=== PATIENT | female | born 1965 | race Caucasian/White ===

== ENCOUNTER → 2018-06-16 12:01 | Outpatient (CLI) | payer OTHER, SELFPAY ==
--- NOTE | 2018-06-16 | DI.MRI.S_ITS ---
PROCEDURE: MR KNEE RT WO CON INDICATIONS: PAIN IN RIGHT KNEE TECHNIQUE: Noncontrast sagittal PD fast spin echo and T2 fast spin echo with fat saturation, sagittal 3-D FLASH with fat saturation; coronal T1 spin echo and PD fast spin echo with fat saturation, and axial PD fast spin echo with fat saturation through the knee. COMPARISON: None. FINDINGS: Image quality: Excellent. Menisci: The complex tear involving posterior horn of medial meniscus is seen extending to both superior and inferior articulating surfaces. There is peripheral displacement of medial meniscus bowing medial collateral ligament. No evidence of focal lateral meniscal tear is seen. The meniscal root ligaments appear intact. Cruciate ligaments: The anterior and posterior cruciate ligaments appear intact. Medial structures: Low to moderate grade MCL sprain is seen.. The posterior oblique ligament, semimembranosus tendon insertions, oblique popliteal ligament, and meniscocapsular junction appear intact. Visualized portions of the pes anserinus tendons appear normal. No abnormal bursal fluid. Lateral structures: The lateral collateral ligament, long and short heads of the biceps femoris tendon appear intact. The popliteus tendon appears normal; the popliteofibular ligament appears intact. The posterosuperior and anteroinferior popliteomeniscal fascicles appear intact. The arcuate and fabellofibular ligaments appear intact, on either side of the lateral inferior geniculate artery. Iliotibial band appears normal. Anterior structures: The quadriceps and patellar tendons appear intact. Patellar alignment is normal. No femoral trochlear dysplasia or ventral trochlear prominence. No edema in the infrapatellar fat pad. Bones and cartilage: There is a moderate tricompartment osteoarthritis more prominent in medial femoral tibial compartment. No fracture or dislocation. No marrow edema. 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 Joint space: There is moderate amount of joint effusion, no gross loose body. No Zendejas's cyst. Normal appearing synovial plicae are incidentally noted. IMPRESSION: 1. Complex tear involving posterior horn of medial meniscus extending to superior and inferior articulating surfaces. No focal lateral meniscal tear. 2. Cruciate ligaments are intact. Low to moderate grade MCL sprain. 3. Moderate tricompartmental osteoarthritis more prominent in the medial femoral tibial compartment. Moderate amount of joint fluid, no gross loose body. Dictated by: Toy Schroeder M.D. on 06/16/2018 at 14:01 Approved by: Toy Schroeder M.D. on 06/16/2018 at 14:08
== END ==
PROVIDERS: PCP Family Medicine Geriatric Medicine; Visit Provider Physician Assistant Medical
DX: M25.561 Pain in right knee (principal); S83.231A Complex tear of medial meniscus, current injury, right knee, initial encounter; S83.411A Sprain of medial collateral ligament of right knee, initial encounter; M17.11 Unilateral primary osteoarthritis, right knee
CPT/HCPCS: 73721

== ENCOUNTER → 2018-07-07 14:41 | Outpatient (CLI) | payer OTHER, SELFPAY ==
[2018-07-07 14:51] LABS: Bacteria Urine None Seen; WBC Urine None Seen (0-5/HPF)
[2018-07-07 15:14] LABS: Appearance Urine UA CLEAR; Bilirubin Urine UA NEGATIVE (NEGATIVE); Color Urine UA YELLOW; Glucose Urine UA NEGATIVE (Negative); Ketones Urine UA NEGATIVE (NEGATIVE); Leukocyte Esterase Urine UA NEGATIVE (NEGATIVE); Nitrite Urine UA NEGATIVE (Negative); Occult Blood Urine UA TRACE-INTACT (Negative); Protein Urine UA NEGATIVE (Negative); Specific Gravity Urine UA >=1.030 (1.000-1.035); Urobilinogen Urine UA 0.2 E.U./dL (0.2)
[2018-07-07 15:15] LABS: Add Manual Diff / Slide Review NO; Basophils Absolute Auto 0 /uL (0-100); Basophils Percent Auto 0.5 % (0-2); Eosinophils Absolute Auto 300 /uL (0-450); Eosinophils Percent Auto 3.5 % (2-4); Hematocrit 40.7 % (36-46); Hemoglobin 13.8 g/dL (12.0-16.0); Lymphocytes Absolute Auto 2100 /uL (1100-4500); Lymphocytes Percent Auto 23.3 % (25-40); Mean Corpuscular HGB Conc 33.8 % (30-36); Mean Corpuscular Hemoglobin 29.8 PG (26-34); Mean Corpuscular Volume 88.3 fL (80-100); Monocytes Absolute Auto 600 /uL (0-900); Monocytes Percent Auto 6.3 % (3-14); Neutrophils Absolute Auto 6000 /uL (1500-7000); Neutrophils Percent Auto 66.4 % (50-75); Platelet Count 301 X10^3/uL (150-400); Red Blood Cell Count 4.61 X10^6/uL (4.0-5.2); Red Cell Distribution Width 14.8 % (11.6-14.8)
[2018-07-07 15:31] LABS: RBC Urine 1-5/HPF (0-5/HPF)
[2018-07-07 15:32] LABS: Amorphous Sediment Urine 2+; Culture Indicated Urine Cult Not Indicated; Squamous Epithelial Cell Urine 10-30 /HPF
[2018-07-07 15:34] LABS: Hemoglobin A1C% w Est Avg Glu 5.5 % (4.0-6.0)
[2018-07-07 15:49] LABS: BUN Creatinine Ratio 18.6 (6-22); Blood Urea Nitrogen 13 mg/dL (7-17); Calcium 9.7 mg/dL (8.4-10.2); Carbon Dioxide 24 mmol/L (22-32); Chloride 105 mmol/L (98-107); Estimated Glomerular Filt Rate > 60.0 mL/min (>60); Glucose 101 mg/dL (70-100); HEMOLYSIS < 15 (0-50); Potassium 3.9 mmol/L (3.4-5.1); Sodium 140 mmol/L (137-145)
[2018-07-07 15:55] LABS: Transferrin 213 mg/dL (206-381)
== END ==
PROVIDERS: Family Provider Physician Assistant; PCP Family Medicine Geriatric Medicine; Visit Provider Physician Assistant Medical
DX: E61.1 Iron deficiency (principal); N39.0 Urinary tract infection, site not specified; R73.9 Hyperglycemia, unspecified; Z01.818 Encounter for other preprocedural examination
CPT/HCPCS: 36415; 80048; 81001; 83036; 84466; 85025; 93005

== ENCOUNTER 2018-08-07 08:02 | Inpatient (IN) | payer OTHER, SELFPAY ==
[2018-07-24 10:03] VITALS: BMI 39.5
[2018-08-07] VITALS (15 sets, daily range): BP systolic 122–168; BP diastolic 69–99; PULSE 72–96; RESP 10–22; TEMP 36.3–37.1; O2SAT 88–98; BMI 39.5
--- NOTE | 2018-08-07 06:00 | DI.RAD.S_ITS ---
PROCEDURE: XR KNEE RT 1TO2V INDICATIONS: prosthesis placement TECHNIQUE: 2 view(s) of the knee acquired. COMPARISON: [facility] [place], [place], XR KNEE ARTHRITIC SERIES RT, 06/19/2018, 11:11. FINDINGS: Bones: Patient is status post knee joint arthroplasty. Hardware components are in expected positions. Visualized bony structures are intact. Soft tissues: Overlying postoperative changes are noted. IMPRESSION: Expected postoperative appearance. Dictated by: Beau Louie M.D. on 08/07/2018 at 13:20 Approved by: Beau Louie M.D. on 08/07/2018 at 13:21
--- NOTE | 2018-08-07 08:56 | PC.NURSE ---
Day shift: Pt not on AC unit at this time.
[2018-08-07] MEDS: LACTATED RINGERS 1,000 ML 42 ML IV (09:03)
[2018-08-07] MEDS: ACETAMINOPHEN 325 MG TABLET 975 MG PO ×2 (09:22→14:08)
[2018-08-07] MEDS: CELECOXIB 200 MG CAPSULE PO (09:23)
[2018-08-07] MEDS: VANCOMYCIN 1,000 MG/200 ML FROZ.PIGGY 200 MG IV ×3 (09:30→22:37)
[2018-08-07] MEDS: MIDAZOLAM 2 MG/2 ML VIAL IV (09:30)
--- NOTE | 2018-08-07 09:54 | PM.PREOP ---
Pre-operative Note Interval Note History & Physical reviewed/Exam performed by Physician: Yes Changes to H&P: No
--- NOTE | 2018-08-07 10:06 | SUR.PREOP ---
confirmed vancomycin to be given with dr. cunningham
--- NOTE | 2018-08-07 10:10 | P.OP_ITS ---
Operative Date/Time/Diagnoses Date of procedure: 08/07/18 Time of procedure: 11:30 Pre-op diagnosis: Right knee osteoarthritis Post-op diagnosis: same Procedure & Clinicians Procedure: Right total knee replacement Same procedure as scheduled: Yes Indications: The patient has had progressively worsening right knee pain with radiographic changes consistent with arthritis. Non-operative management has failed and the patient has requested total knee replacement. The risks, benefits and alternatives to surgery were discussed with the patient prior to proceeding. Risks discussed included, but were not limited to, failure to relieve pain, stiffness, infection, nerve damage, deep venous thrombosis, pulmonary embolism, stroke, coma, heart attack, permanent paralysis and , as well as the potential need for eventual revision of the prosthetic. Surgeon: Mickey Kong Avionics System Engineer: Sherri Zafar Click Yes if Unassisted: No Anesthesia Type: General, Peripheral nerve block and Local Operative Notes Findings: Significant patellofemoral and medial compartment osteoarthritis. Closure Type: primary Specimen(s): none sent Prosthetic devices, grafts, tissues, transplants, or devices: Implants used in this procedure were manufactured by the [employer] and [employer] Reviewed and included the BCS II Journey total knee replacement with a size 5 right Oxinium femoral component, a size 4 right non porous tibial base plate, a 10 mm cross- linked polyethylene tibial insert and a 32 mm oval Alexia II patellar component. Applied: implant(s) Estimated Blood Loss (mL): 100 Blood products transfused: none Tourniquet time (min): 55 Procedure in detail: The patient was seen in the pre-operative area, where the patient identified the right knee as the operative site and this was marked with my initials. The patient received pre-operative antibiotics, and was taken to the operating room and placed on the operative table in the supine position. After satisfactory anesthesia, a biomedical equipment support specialist out was performed. The right leg was encircled with a tourniquet about the proximal thigh, and the leg was prepared from the toes to the tourniquet with ChloroPrep in the usual fashion and draped through sterile drapes. The leg was elevated and exsanguinated with Eschmark bandage and the tourniquet inflated to 250 mmHg pressure, about 5 min later this was increased to 300 mmHg due to bleeding through the tourniquet.. The knee was approached through an approximately 18 cm incision centered over the patella and carried into the knee through a medial parapatellar arthrotomy. The anterior osteophytes and soft tissues were removed. The rotational landmarks of Jorge's line and the transepicondylar axis were marked on the femur with electrocautery, and intramedullary guide holes for the femur and tibia were created. The distal femoral cut was made in 6 degrees of valgus using the intramedullary guide at the primary cut setting. The proximal tibial cut was then made using the intramedullary guide, taking 9 mm of bone off the less involved side. The extension gap was checked and the rotation of the femoral component confirmed with the gap balancing system. The anterior, posterior and chamfer cuts were then made. The posterior osteophytes and soft tissues were then removed. The posterior capsule was injected with part of a mixture of 60 ml 0.25% Marcaine mixed with 20 ml Exparel and 4 mg of morphine for post-operative pain control. (Although the patient lists morphine as an allergy, her reaction is described as ?respiratory depression? and as the patient was monitored by the anesthesiologist this was felt to be a reasonable risk.) The remainder of this mixture was injected into the capsule and subcutaneous tissues during cement curing. The tibia was prepared with the rotation set by an extra medullary guide. Trial tibial and femoral components were then placed and the intercondylar notch cut through the femoral trial. Range of motion was 0-120 degrees with further flexion limited by the patient's body habitus, with good stability throughout the range. The patella was then cut to accommodate the patellar prosthetic. There was no need for a lateral release. The trials were then removed, and the femoral hole plugged with a bone plug. The bone was prepared with pulsatile lavage, and dried with a sponge. Cement was applied and the final prosthetics placed. Excess cement was removed during and after cement curing. After confirming there was no extruded cement posteriorly, the final tibial insert was placed. The knee was copiously irrigated and the tourniquet deflated. Hemostasis was obtained. The capsule was closed with interrupted # 2 polyester suture. The subcutaneous layer was closed with 3-0 Vicryl, and the skin with a running 3-0 V-Lock suture and SteriStrips. An Aquacel Ag dressing was applied and the patient was taken to recovery having tolerated the procedure well. Complications: none Condition: stable Disposition: PACU Plan for aftercare: The patient will be maintained on a standard total knee replacement protocol with weight bearing as tolerated. The patient will receive aspirin and sequential compression devices for DVT prophylaxis. The patient will be discharged home when safe for the home environment.
--- NOTE | 2018-08-07 10:15 | SUR.PREOP ---
Block start time []0938 . Monitoring initiated and maintained throughout procedure. Oxygen and medications given per anesthesiologist instructions. Patient remained stable throughout procedure, no adverse reactions noted. Block end time [0943].
--- NOTE | 2018-08-07 10:39 | SUR.OPER ---
Supine on padded OR bed. Pillow under head, arms secured on padded armboards <90 degree abduction. Safety belt across torso. Non-operative leg secured with tape over blanket over lower leg. Operative leg secured in DeMayo positioner. Foam padded brace at thigh of operative leg.
[2018-08-07] MEDS: BUPIVACAINE 0.25% W/ EPI 50 ML VIAL 60 ML INJ (10:47)
[2018-08-07] MEDS: MORPHINE 4 MG/ML INJ INJ (10:48)
[2018-08-07] MEDS: BUPIVACAINE LIPOSOME 266 MG/20 ML VIAL INJ (10:48)
[2018-08-07] MEDS: TRANEXAMIC ACID 1,000 MG VIAL 1000 MG INJ ×2 (10:49→11:15)
[2018-08-07] MEDS: HYDROMORPHONE 2 MG INJ 0.25 MG IV (12:18)
[2018-08-07] MEDS: HYDROMORPHONE 2 MG INJ 0.5 MG IV ×2 (12:26→12:36)
--- NOTE | 2018-08-07 12:42 | SUR.PHASEI ---
Reported 7/10 Rt ankle ache, moving ankle independently. Rt ankle wnl.
[2018-08-07] MEDS: LORazepam 2 MG/ML SYRINGE 0.25 MG IV (12:54)
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
--- NOTE | 2018-08-07 13:06 | SUR.PHASEI ---
Report called to SARAH Meyer. Pt eleazar, sats 92-96% on RA.
--- NOTE | 2018-08-07 13:34 | SUR.PHASEI ---
Pt transferred to the floor with her suitcase, belongings bag, walker and two grabbing devices. Report to Betsy. VS stable. Drsg cdi. Pt smiling and talkative. IV saline locked.
--- NOTE | 2018-08-07 13:38 | PC.NURSE ---
Day shift: Arrived on unit at approx 1340. Oriented to room and call light. 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 Agrees to not get OOB w/o help. Denies nausea. ROGELIO wrap w/ Aquacel is CDI. CMS ok. PPP. VS ok. Hx HTN. No drains and no Bryant. Voided just prior to leaving PACU per WARD AIDE.
[2018-08-07] MEDS: LACTATED RINGERS 1,000 ML 125 ML IV ×2 (13:48→19:59)
[2018-08-07] MEDS: hydrOXYzine pamoate 25 MG CAPSULE PO ×2 (14:09→19:44)
[2018-08-07] MEDS: HYDROCODONE/ACET 5/325 TABLET 1 TAB PO (14:23)
--- NOTE | 2018-08-07 14:45 | P.PCN_ITS ---
Procedures Date/Time Date of procedure: 08/07/18 Time of procedure: 09:45 Nerve Block Time out performed: Yes Local anesthetic used: lidocaine 1% (w/ epi 5mL + 15mL 0.5opivacaine) Location of anesthetic used: adductor canal Amount of anesthesia used (mL): 20 Nerve blocks: femoral (adductor canal) Procedure successful: Yes Patient tolerated procedure: well Complications: none Additional comments: Adductor canal block for post operative pain management. R/B discussed. Site marked. Consent verified/signed. Standard ASA monitors. NC O2. Chloroprep. Sterile technique. Femoral A/V/N identified medial mid thigh with US. Lidocaine skin wheal. 100mm x 21g Pajunk needle advanced with in-plane US guidance. Negative aspiration. LA injected medial and lateral to femoral artery. Negative aspiration throughout. No pain, no paresthesia with injection. VSS. Tolerated well. To OR.
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
[2018-08-07] MEDS: HYDROMORPHONE 0.5 MG INJ IV (17:10)
[2018-08-07] MEDS: HYDROCODONE/ACET 10/325 TABLET 1 TAB PO ×2 (19:42→23:42)
[2018-08-07] MEDS: DOCUSATE 100 MG CAPSULE PO (22:37)
[2018-08-07] MEDS: ASPIRIN EC 81 MG TABLET PO (22:37)
--- NOTE | 2018-08-07 23:33 | PC.NURSE ---
Evening note: Jenny in good spirits tonight, she is Ox3 and to situation, reports good pain relief from hydrocodone & vistaril. Did need IV Dilaudid x 1 for breakthrough pain earlier, since then I have given her 10 mg hydrocodone which she said worked much better/longer than the 1 tab did. Drsg is CDI, CMS intact, still reports numbness to right medial knee and knee cap area. Refusing SCD's but has been ambulating to BR q1-2hours, doing leg exercises in bed, can lift leg slightly off bed. 1 person asst w/fww. Denies nausea tonight and tolerated dinner. Instructed to call nurse if needs OOB, she has been using call button appropriately, bed alarm active for safety per hospital protocol.
--- NOTE | 2018-08-08 00:02 | PC.NURSE ---
Addendum entered by Lynne Sheth R.N. 08/08/18 05:54: States pain much better controlled this morning and rates pain as 2/10. States she is expecting to DC home later this morning. Continues to void frequently. Used bedpan most of night but able to get up with walker and 1 assist to bathroom again this morning. Continues to decline use of SCD's and so reminded (and is doing) to do frequent ankle waving. Original Note: Addendum entered by Lynne Sheth R.N. 08/08/18 02:28: Has been voiding every 15-30 minutes and urine is very pale yellow. IVF stopped as per MD order. Original Note: Addendum entered by Lynne Sheth R.N. 08/08/18 01:43: States pain is more sharp and now 6/10; repositioned, ice applied and medicated with Vistaril. Patient knows if pain doesn't decrease MD will be contacted as patient does not want to take Dilaudid as she felt as though she stopped breathing when it was given earlier. Original Note: Patient is alert and oriented. Breath sounds CTA with RA sat of 96%; on continuous oximetry. HRR with elevated BP of 159/90. Denies nausea. BT hypoactive; denies flatus. Has chronic urinary frequency, urgency and dribbles but denies dysuria. Moves self in bed but needs 1 assist + walker when out of bed. States she is unable to put full weight on right leg but feels steady on feet. Dressing to right knee is CDI; leg is wrapped with guillermina. Complains of 6/10 deep ache so repositioned, medicated with Vicodin and ice applied. CMS is intact. Declines to wear SCD's. Fall risk score is moderate and patient is calling appropriately.
[2018-08-08] MEDS: hydrOXYzine pamoate 25 MG CAPSULE PO ×2 (01:39→07:58)
[2018-08-08] MEDS: HYDROCODONE/ACET 10/325 TABLET 1 TAB PO ×2 (03:40→07:56)
[2018-08-08 04:26] VITALS: BP 179/86; PULSE 84; RESP 16; TEMP 36.9; O2SAT 95
[2018-08-08 05:58] LABS: Hematocrit 40.1 % (36-46); Hemoglobin 13.5 g/dL (12.0-16.0)
[2018-08-08 07:47] VITALS: BP 155/86; PULSE 91; RESP 18; TEMP 36.6; O2SAT 96
[2018-08-08] MEDS: CHOLECALCIFEROL (VITAMIN D3) 1,000 UNIT TABLET 2000 UNIT PO (07:54)
[2018-08-08] MEDS: LORATADINE 10 MG TABLET PO (07:55)
[2018-08-08] MEDS: MELOXICAM 7.5 MG TABLET 15 MG PO (07:55)
[2018-08-08] MEDS: ASPIRIN EC 81 MG TABLET PO (07:56)
[2018-08-08] MEDS: MAGNESIUM OXIDE 400 MG TABLET PO (07:56)
[2018-08-08] MEDS: DOCUSATE 100 MG CAPSULE PO (07:56)
--- NOTE | 2018-08-08 08:00 | PM.DS.1 ---
History of Present Illness Date Patient Seen: 08/08/18 Time Patient Seen: 08:01 Chief complaint: Right Total Knee Arthroplasty [id number] Narrative: The history and physical examination are contained in the chart previously completed note. Please refer to that note for this information. Discharge Providers Date of admission: 08/07/18 08:02 Discharge Date: 08/08/18 Primary care physician: Maikel Cruz MD Consults: 08/07/18 13:30 Consult to Discharge Planning Routine Comment: Consult to Physical Therapy Evaluate & Treat Comment: Physician Instructions: postop TKA protocol Discharge provider: Mickey Kong MD Summary Discharge Diagnosis: 1. Right knee osteoarthritis. Hospital Course: The patient was admitted to the hospital and taken directly to the operating room on August 07, 2018. She underwent a right total knee replacement without complications. On postoperative day 1 she was comfortable and ready for discharge. Status at Discharge Cognitive/behavioral status at discharge: oriented Functional status at discharge: uses cane/walker Overall status at discharge: patient is progressing back to baseline Time Spent with Patient Less than 30 minutes Exam Vital Signs (past 8 hours): - 08/08/18 04:26 08/08/18 07:47 Temperature 98.4 F 97.8 F Pulse Rate 84 91 H Respiratory Rate 16 18 Blood Pressure 179/86 H 155/86 H Pulse Oximetry 95 96 Oxygen Delivery Method Room Air Oxygen Flow Rate 0 Narrative Exam Narrative: Right knee wound is dressed with no drainage. Calf is soft. Light touch and motion are intact in the right lower extremity. Objective Labs Result Diagrams: 08/08/18 05:42 Labs: Laboratory Results - last 24 hr 08/08/18 05:42 Hgb 13.5 Hct 40.1 Discharge Plan Discharge Plan Patient Disposition: Home Discharge Med Rec/Prescriptions Prescriptions: New hydrocodone-acetaminophen 5-325 mg Tablet 1 tab PO Q4HR PRN (Reason: Pain, Moderate (4-6)) Qty: 40 RF: 0 aspirin 81 mg Tablet,Delayed Release (Dr/Ec) 81 mg PO BID 42 Days Qty: 84 RF: 0 hydroxyzine pamoate 25 mg Capsule 25 mg PO Q6HR PRN (Reason: Nausea) Qty: 40 RF: 0 Continued Vitamin E (VITAMIN E) 1 cap PO DAILY Qty: 0 RF: 0 magnesium oxide 400 mg magnesium Tablet 400 mg PO DAILY Qty: 0 RF: 0 Hydroxytryptophan (#5-HTP) 100 mg PO DAILY Qty: 0 RF: 0 cetirizine 10 MG tablet 10 mg PO QDAY Qty: 0 RF: 0 cholecalciferol (vitamin D3) [Vitamin D3] 2,000 unit Capsule 2,000 unit PO DAILY Qty: 0 RF: 0 Vitamin D3 4,000 unit Capsule 4,000 unit PO DAILY RF: 0 meloxicam 15 mg tablet 15 mg PO DAILY RF: 0 Follow up/Referrals: Maikel Cruz MD [Primary Care Provider] - Mickey Kong MD [Physician] - 3-5 Days Provider Discharge Instructions Diet: Diet as Tolerated and Regular Activity: You may weight bear as tolerated on your right leg. Cold/Heat Therapy: Apply ice to the right knee for 15 min of every hour as needed for pain. Skin/Wound/Dressing Care Report to your healthcare provider any signs of infection, such as:: chills, fever, night sweats, increased pain, unusual drainage and unusual redness Dressing: Remove the Foster wrap 3 days after surgery. You may shower with the deeper dressing in place. If the deeper dressing gets saturated with either water or blood please contact the office. Visit Report/Discharge Packet Instructions: DI for Knee Replacement Stand Alone Forms: Surgery Discharge Discharge Data Primary Care Provider: Maikel Cruz Attending Provider: Mickey Kong Admit Date/Time: 08/07/18 08:02
--- NOTE | 2018-08-08 09:00 | PT.IPTN ---
Current Diagnoses Unilateral primary osteoarthritis, right knee (08/07/18) Surgery Performed Operation Date: 08/07/18 10:15 Actual Procedures p Total Knee Arthroplasty(Right) - Mickey Kong MD Physical Therapy Treatment Note M2 PT-IP Current Condition Start: 08/07/18 15:07 Freq: NEEDED Status: Discharge Protocol: Document 08/07/18 14:30 HH (Rec: 08/07/18 15:30 HH [id number]) Physical Therapy Current Condition Current Condition Evaluation Date 08/07/18 Treatment Diagnosis R TKA, difficulty in walking and R LE weakness Onset Date 08/07/18 Precautions Other Precautions Pt states I cant lay flat due to my stenosis. Weight Bearing Status Weight Bearing Status Weight Bear as Tolerated M3 PT-IP Subjective Start: 08/07/18 15:07 Freq: NEEDED Status: Discharge Protocol: Document 08/08/18 09:00 RS (Rec: 08/08/18 11:04 RS [email or web address]) Subjective Physical Therapy Visit Type Type Treatment Note Visit Start Time 08:00 Visit Stop Time 09:00 Total Visit Minutes 60 Notes Pt hoping to leave [facility] to make the [address] [facility]. Therapy Pain Assessment Pain When Pain Assessed At Rest Pain Present Pain Present Denied Pain M4 PT-IP Mobility and Gait Start: 08/07/18 15:07 Freq: NEEDED Status: Discharge Protocol: Document 08/08/18 09:00 RS (Rec: 08/08/18 11:04 RS [email or web address]) PT-Bed Mobility Assessment Supine to Sit Supine to Sit Independent Sit to Supine Sit to Supine Independent Scooting Scooting to Edge of Bed Independent Scooting Up and Down in Bed Independent PT-Transfer Assessment Sit to and From Stand Sit to and from Stand Independent Equipment Transfer Assistive Device Front Wheeled Walker Transfers Transfer Destination Bed Chair Toilet Transfer Technique walked between surfaces Transfer Ability Level of Assist Independent Comments Mobility Comments completely ind to mod ind for all bed mobility and transfers Gait Assessment Gait Gait Assistance Required: Independent Distance (Feet) 150 Able to Maintain Weight Bearing Status Yes During Gait Assistive Devices Assistive Device Front Wheeled Walker Gait Deviations General Gait Pattern Antalgic Decreased Stride Length Decreased Feet Clearance Step-to Gait Factors Limiting Gait Function Factors Limiting Gait Function Decreased Activity Tolerance Decreased Sensation Decreased Strength Limited Range of Motion Pain Comments Gait Comments Pt mod ind w/ gait w/ FWW on level ground. Pt does stil have antalgic pattern, not yet symmetrical but better than harika-to pattern. Stair Climbing Assessment Comments Stair Climbing Comments Pt declined to perform at this time, but able to verbalize step-to sequencing for ideal technique. PT-Balance Assessment Sitting Balance and Reactions Static Sitting Balance Ability Normal Dynamic Sitting Balance Ability Normal Standing Balance and Reactions Static Standing Balance Ability Good Dynamic Standing Balance Ability Good Device Used FWW M5 PT-IP Objective Assessments Start: 08/07/18 15:07 Freq: NEEDED Status: Discharge Protocol: Document 08/07/18 14:30 HH (Rec: 08/07/18 15:30 [email or web address]) Orientation Orientation/Cognition Level of Alertness Alert Orientation Name Age Birthday Month Date Year Day of Week Place Situation Language Function Ability No Deficits Noted Safety Awareness Understands Safety Issues Memory Description No Deficits Noted Gross Range of Motion Upper Extremity ROM Assessment Within Functional Limits Lower Extremity ROM Assessment Right Impaired Impairments R knee ext = 5 degrees R knee flex= 95 degrees Strength Upper Extremity Strength Assessment Within Functional Limits Lower Extremity Strength Assessment Right Impaired Knee 3/5 Coordination Assessment Gross Coordination Gross Coordination WNL Sensation Assessment Sensation Gross Sensation WNL Light Touch Impaired Proprioception (Position) Impaired Sensation Description Numbness Tingling Comments Sensation Comments decreased sensation at R inner stern Muscle Tone Muscle Tone WNL Yes M6 PT-IP Treatment Start: 08/07/18 15:07 Freq: NEEDED Status: Discharge Protocol: Document 08/07/18 14:30 HH (Rec: 08/07/18 15:30 [id number]) Physical Therapy Treatment Exercises Exercises Ankle Pumps Gluteal Sets Quad Sets Heel Slides Education Education Provided Precautions Weight Bearing Status Post-Op Packet Safety M7 PT-IP Assessment and Plan Start: 08/07/18 15:07 Freq: NEEDED Status: Discharge Protocol: Document 08/08/18 09:00 RS (Rec: 08/08/18 11:04 RS [email or web address]) PT Summary Assessment and Plan Potential Rehabilitation Potential Excellent Status of Condition at Evaluation Stable Summary Progress Towards Goals Safe For Discharge Goals Met Assessment Summary Pt able to demonstrate ind<> mod ind mobility and self-care activities. Pt is safe to discharge home today w/ OPPT f /u. Pt will be leaving shortly to catch the [place] [place] to [facility]. Goals Bed Mobility Goal Independent Transfer Goal Independent Front Wheeled Walker Gait Goal Independent Front Wheel Walker Gait Distance 150 Days to Meet Goals 150 Frequency of Treatment Frequency Of Treatment Discharge Recommendations To Nursing Amount of Assist Needed Independent Discharge Recommendations PT Discharge Recommendations Home with Assistance Outpatient PT
--- NOTE | 2018-08-08 12:58 | CM.DANOTE ---
DCP/Assessment: Reviewed chart. Patient is 52yr old female admitted to [facility]. for right TKA performed on 08-07-[address] Kong. PCP is Dr. Cruz. Primary payor is 1)Landon. Met with patient explained CM/SW role. Patient reports that she plans to d/c home today. Patient cleared by therapy and reports that she has friends/family that will assist her at home. Patient has all needed DME in the home. Patient also has outpatient therapy arranged at [facility]. P: Home today. Priority boarding pass for he completed by nursing. No additional needs identified. 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 No Advance Directives on File No History Provided By Patient Prior Living Arrangements House Household Members family friend(s) none Type of transporation used prior to Drives own vehicle admit Independent with ADL's Yes Is patient alert and oriented? Yes Caregiver for Another No DME Already Rented / Owned Wheelchair FWW / Walker Cane Patient/Family Preference OP PT Therapy Barriers to Discharge No Discharge Plan Home Transportation Arrangement Family to provide transport. Referrals Initiated None needed Whiteboard Updated in Patient Room with Yes name and ext. # of Flood Control Engineer Review Status In Process Next Review Type Continued Stay Review Pre-Anesthesia Assessment Start: 07/24/18 09:29 Freq: Status: Complete Protocol: Document 07/24/18 10:03 J (Rec: 07/24/18 11:03 [facility] [id number]) Pre-Anesthesia Assessment PAC Comment Flor Patient Information Reviewed Via Chart Review Phone Assessment Assessment Completed With Patient Other Primary Care Provider Maikel Cruz Seen Specialist in Last 12 Months Yes Specialist Seen Orthopedist Primary Language Cuban Director Embalmer Required No Height 163.83 cm Weight 106.141 kg Body Mass Index (BMI) 39.5 Hearing Ability Normal Visual Impairment Partially Limited Visual Assist Glasses Dentition Type Teeth, Natural Present Teeth, Missing Barriers to Learning Cognitive/Verbal Memory Visual Comment reading glasses; dental upper bridge; occ confusion Hx Anesthesia Reactions Yes: Sensitive to drugs, Needs HOB 30 degrees Hx Family Anesthesia Reaction No Hx Malignant Hyperthermia No Hx Blood Transfusions Yes: Possibly post-delivery Hx Blood Transfusion Reaction No Anesthesia Review Requested Yes: [place]'s syndrome [employer] Person No alcohol intake former Alcohol Intake Frequency Other: none for 2 years; headaches Smoking Status Never smoker Has it been 2 weeks or less since No patient quit smoking Substance Use Type does not use Pain Present Pain Reported Comment Head to toe Musculoskeletal Symptoms Abnormal Gait Arthralgias Back Pain Difficulty Walking Joint Pain Joint Stiffness Joint Swelling Limited Range of Motion Loss of Height Muscle Cramps Muscle Spasms Muscle Weakness Myalgias Numbness Tingling Tremors History of Falling (Recent or History of Yes ) Patient is completely paralyzed or No completely immobile Prosthesis or Orthotic Device Cane Front Wheel Walker Crutches Gait/Transferring Impaired Mental Status Oriented to own ability Is patient on oxygen? No Does patient have ARREOLA/SOB Yes: R/T asthma Hx Sleep Apnea No Currently Taking a Beta Ana Laura No Can You Climb a Flight of Stairs Without No SOB Hx Chest Pain No Hx SOB No Hx Syncope or Dizziness Yes: Dizzy r/t neck position Anti-Coagulant Therapy No Has a Shearer Helper No Cardiac Testing No: Digital subtraction venography Hx Pacemaker/ICD No Pacemaker Rep Required? No Cardiac Clearance Received Not Applicable Comment Told her that heart vasculature is normal Diet Type At Home Regular dysphagia Yes: Uses positioning to help Bladder Pattern Frequency Nocturia Urgency Urinary Catheter Present No Hx Urinary Self Catheterization No Diabetes No Patient No Lactating No Hx Drug Resistant Organism No Presence of External or Internal Medical Yes: Neck Devices Have you traveled outside the [facility] in the last 30 days? Marital Status Lives With none Prior Living Arrangements House Number of Stairs To Enter/Railing? 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 Are you currently considering suicide? No Do you have a plan to hurt yourself or No Plan others? Do You Have Any Spiritual Beliefs That No May Affect Your HC Choices? Do You Have Any Cultural Practices That No May Affect Your HC Choices? Spiritual Referral None Who Can We Speak to About Patient's Care Family & Friends Identifying Code for Release of Patient Declined Information Health Care Proxy/Next of Kin Daughter - Cata Zapata Health Care Proxy Emergency Contact Name Carmen [facility] Emergency Contact Advance Directives? Yes Advance Directives on File No Requested Patient Bring Advanced Yes Directives DOS Power of Warehouser No PAC Instructions Assistance for 24 hours post- op Do not shave/clip surgical site Durable medical equipment Medications to take/avoid Nasal antibiotic No ETOH/petroleum product on skin DOS NPO Ortho class Post-op transportation Pre-op antibiotic Pre-surgical wash Sensory aids Sturdy shoes/comfortable clothes Do not bring valuables and remove jewelry Comment Check-in [id number]
== END 2018-08-08 08:57 | disposition home or self-care (01) | DRG 470 ==
PROVIDERS: Admitting Provider Orthopaedic Surgery; PCP Family Medicine Geriatric Medicine; Visit Provider Orthopaedic Surgery
PROC: 0SRC0JZ Replacement of Right Knee Joint with Synthetic Substitute, Open Approach (ICD-10-PCS; CPT 27447; principal; 2018-08-07 10:15)
DX: M17.11 Unilateral primary osteoarthritis, right knee (principal); E66.9 Obesity, unspecified; G25.0 Essential tremor; J45.909 Unspecified asthma, uncomplicated; Z87.891 Personal history of nicotine dependence; Z68.39 Body mass index [BMI] 39.0-39.9, adult; G93.2 Benign intracranial hypertension
CPT/HCPCS: 36415; 64450; 73560; 85014; 85018; 94762; 97116; 97161; 97530; C1776; C9290; J1100; J1170; J1200; J2060; J2250; J2270; J2405; J2704; J3010; J3370

== ENCOUNTER → 2020-06-12 09:56 | Outpatient (CLI) | payer OTHER, SELFPAY ==
[2018-08-07 13:51] VITALS: BMI 39.5
[2020-06-12 10:53] LABS: COVID19 -Nasal RAPID Negative (Negative)
== END ==
PROVIDERS: PCP Naturopath; Referring Provider Internal Medicine; Visit Provider Internal Medicine
DX: Z20.828 Contact with and (suspected) exposure to other viral communicable diseases (principal)
CPT/HCPCS: 87635; C9803

== ENCOUNTER → 2020-06-12 12:12 | Outpatient (CLI) | payer OTHER, SELFPAY ==
[2018-08-07 13:51] VITALS: BMI 39.5
--- NOTE | 2020-06-12 12:19 | DI.RAD.S_ITS ---
PROCEDURE: XR HAND LT 2V INDICATIONS: BI HAND/FOOT PAIN TECHNIQUE: 3 views of the hand(s) acquired. COMPARISON: None. FINDINGS: Bones: No fractures or dislocations. Carpal bones are normally aligned. No suspicious bony lesions. 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 No osseous erosive changes. Soft tissues: No suspicious soft tissue calcifications. IMPRESSION: 1. No fracture. No acute osseous lesion. If symptoms and/or clinical suspicion for pathology persists, further assessment with repeat radiographs (7-10 days) or advanced imaging (e.g. CT, MRI or bone scan) should be considered. 2. 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 Dictated by: Anika Mensah MD, PhD on 06/12/2020 at 16:42 Approved by: Anika Mensah MD, PhD on 06/12/2020 at 16:43
--- NOTE | 2020-06-12 12:19 | DI.RAD.S_ITS ---
PROCEDURE: XR FOOT RT MIN 3V INDICATIONS: BI HAND/FOOT PAIN TECHNIQUE: 3 views of the foot were acquired. COMPARISON: None. FINDINGS: Bones: No fractures or dislocations. No suspicious bony lesions. Small plantar calcaneal bone spur. Mild midfoot osteoarthritic degenerative change. No osseous erosive changes. Soft tissues: No tibiotalar joint effusion. Achilles tendon appears normal. IMPRESSION: 1. No fracture. No acute osseous lesion. If symptoms and/or clinical suspicion for pathology persists, further assessment with repeat radiographs (7-10 days) or advanced imaging (e.g. CT, MRI or bone scan) should be considered. 2. Mild midfoot osteoarthritis. Dictated by: Anika Mensah MD, PhD on 06/12/2020 at 16:40 Approved by: Anika Mensah MD, PhD on 06/12/2020 at 16:42
--- NOTE | 2020-06-12 12:19 | DI.RAD.S_ITS ---
PROCEDURE: XR FOOT LT MIN 3V INDICATIONS: BI HAND/FOOT PAIN TECHNIQUE: 3 views of the foot were acquired. COMPARISON: None. FINDINGS: Bones: No fractures or dislocations. No suspicious bony lesions. Small plantar calcaneal bone spur. Mild midfoot osteoarthritis. No osseous erosive changes. Soft tissues: No tibiotalar joint effusion. Achilles tendon appears normal. IMPRESSION: 1. No fracture. No acute osseous lesion. If symptoms and/or clinical suspicion for pathology persists, further assessment with repeat radiographs (7-10 days) or advanced imaging (e.g. CT, MRI or bone scan) should be considered. 2. Mild midfoot osteoarthritis. Dictated by: Anika Mensah MD, PhD on 06/12/2020 at 16:43 Approved by: Anika Mensah MD, PhD on 06/12/2020 at 16:44
--- NOTE | 2020-06-12 12:19 | DI.RAD.S_ITS ---
PROCEDURE: XR HAND RT 2V INDICATIONS: Polyarticular pain. TECHNIQUE: 3 views of the hand(s) acquired. COMPARISON: None. FINDINGS: Bones: No fractures or dislocations. Carpal bones are normally aligned. No suspicious bony lesions. Osseous erosive changes. Soft tissues: No suspicious soft tissue calcifications. IMPRESSION: No fracture. No osseous lesion. If symptoms and/or clinical suspicion for pathology persists, further assessment with repeat radiographs (7-10 days) or advanced imaging (e.g. CT, MRI or bone scan) should be considered. Dictated by: Anika Mensah MD, PhD on 06/12/2020 at 16:44 Approved by: Anika Mensah MD, PhD on 06/12/2020 at 16:45
--- NOTE | 2020-06-20 08:16 | PM.PFT.1 ---
Pulmonary Function Test Referral & Results Date Patient Seen: 06/12/20 Requesting provider: Lakshmi Ryan Indication: Dyspnea upon exertion Results: The spirometry demonstrates an FVC of 2.55 L which is 72% of predicted. The FEV1 was measured at 2.18 L which is 79% of predicted. The FEV1/FVC ratio was 86 which is 108% of predicted. Following the administration of bronchodilator there was no appreciable change, although there is a 21% improvement in FEF 25-75% consistent with minimal increase in small airway flow. Lung volumes show an SVC of 3.23 L which is 99% of predicted. The diffusing capacity was measured at 20.91 which is 81% of predicted. The maximum voluntary ventilation was slightly reduced Interpretation: This study demonstrates perhaps mild obstructive lung disease based on reduction FEV1 although FEV1/FVC ratio was preserved there is also some minimal but noted evidence of improvement following bronchodilator in small airway flow as above
== END ==
PROVIDERS: PCP Naturopath; Visit Provider Internal Medicine
DX: R06.09 Other forms of dyspnea (principal); J45.20 Mild intermittent asthma, uncomplicated; G47.36 Sleep related hypoventilation in conditions classified elsewhere; M13.0 Polyarthritis, unspecified
CPT/HCPCS: 73120; 73630; 94060; 94726; 94729

== ENCOUNTER → 2021-04-17 10:55 | Outpatient (CLI) | payer OTHER, SELFPAY ==
[2018-08-07 13:51] VITALS: BMI 39.5
--- NOTE | 2021-04-17 10:56 | DI.US.S_ITS ---
PROCEDURE: US PELVIC COMPLETE INDICATIONS: post menopausal bleeding TECHNIQUE: Real-time scanning was performed of the pelvic organs, with image documentation. Additional endovaginal scanning was necessary due to incomplete visualization of the adnexal and endometrial structures by transabdominal scanning. COMPARISON: None. FINDINGS: Uterus: Uterus is normal in size at 7.7 x 3.7 x 5.3 cm. The endometrium measures 3.4 mm in combined thickness. Ovaries: Normal ovaries measuring 1.6 x 0.9 x 1.4 cm on the right and 2.0 x 1.6 x 1.3 cm on the left. Small bilateral follicular cysts are present, largest of which is on the left measuring up to 1 cm. Other: No pathologic free abdominal or pelvic fluid. IMPRESSION: No source for postmenopausal bleeding identified. Dictated by: Lance Ramirez [facility] Interpreted: Toy Schroeder MD on 04/17/2021 at 13:28 Transcribed by: DEMETRIUS on 04/17/2021 at 13:29 Approved by: Toy Schroeder M.D. on 04/17/2021 at 17:00
== END ==
PROVIDERS: PCP Naturopath; Referring Provider Obstetrics & Gynecology; Visit Provider Obstetrics & Gynecology
DX: N95.0 Postmenopausal bleeding (principal)
CPT/HCPCS: 76830; 76856

== ENCOUNTER → 2021-05-01 16:48 | Outpatient (CLI) | payer OTHER, SELFPAY ==
[2018-08-07 13:51] VITALS: BMI 39.5
--- NOTE | 2021-05-01 | DI.MG.S_ITS ---
BILATERAL DIGITAL SCREENING MAMMOGRAM 3D/2D WITH CAD: 05/01/2021 CLINICAL: Routine screening. Family history of breast cancer. Baseline by default. No prior exams were available for comparison. There are scattered fibroglandular elements in both breasts. Current study was also evaluated with a Computer Aided Detection (CAD) system. No significant masses, calcifications, or other findings are seen in either breast. IMPRESSION: NEGATIVE There is no mammographic evidence of malignancy. A 1 year screening mammogram is recommended. This exam was interpreted at Station ID: [id number]. NOTE: For mammograms, a report in lay terms will be sent to the patient. Approximately 15% of breast malignancies will not be visualized mammographically. In the management of a palpable breast mass, a negative mammogram must not discourage biopsy of a clinically suspicious lesion. Electronically Signed By: Monse bob/rosey:05/01/2021 17:50:15 letter sent: Normal Exam ACR BI-RADS Category 1: Negative [id number]
== END ==
PROVIDERS: PCP Naturopath; Referring Provider Obstetrics & Gynecology; Visit Provider Obstetrics & Gynecology
DX: Z12.31 Encounter for screening mammogram for malignant neoplasm of breast (principal); Z80.3 Family history of malignant neoplasm of breast
CPT/HCPCS: 77063; 77067

== ENCOUNTER 2021-05-07 09:24 | Outpatient (RCR) | payer OTHER, SELFPAY ==
[2018-08-07 13:51] VITALS: BMI 39.5
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
== END 2021-12-08 12:52 ==
LOC: PHYS 09:24
PROVIDERS: Family Provider Naturopath; PCP Naturopath; Referring Provider Obstetrics & Gynecology; Visit Provider Obstetrics & Gynecology
DX: N81.2 Incomplete uterovaginal prolapse (principal); N39.41 Urge incontinence; M62.81 Muscle weakness (generalized); R29.898 Other symptoms and signs involving the musculoskeletal system
CPT/HCPCS: 97162; 97535